=== PATIENT | female | born 1995 ===

== ENCOUNTER 2017-09-03 19:07 | Emergency (ER) | payer OTHER ==
--- NOTE | 2017-09-03 20:36 | ED PDOC ---
HPI: Back Time Seen by Provider: 09/03/17 20:15 Chief Complaint (Nursing): Back Pain Chief Complaint (Provider): low back pain History/Exam Limitations: no limitations Onset/Duration Of Symptoms: Days (2 weeks), Waxing/Waning Current Symptoms Are (Timing): Still Present Exacerbating Factor(s): Turning, Movement Additional Complaint(s): 22 y/o female presents for evaluation of low back pain x 2 weeks. Patient states pain worse with positional change, most notably when bending forward. Patient also notes bright red blood in stool as of 3 days ago. Denies fever, nausea/vomiting, chest pain, abdominal pain, urinary symptoms, recent travel, sick contacts. Past Medical History Reviewed: Historical Data, Nursing Documentation, Vital Signs Vital Signs: Last Vital Signs Temp 99.7 F H 09/03/17 19:24 Pulse 87 09/03/17 19:24 Resp 16 09/03/17 19:24 BP 116/82 09/03/17 19:24 Pulse Ox 100 09/03/17 19:24 - Medical History PMH: No Chronic Diseases - Surgical History Surgical History: No Surg Hx - Family History Family History: States: No Known Family Hx - Living Arrangements Living Arrangements: With Family - Immunization History Hx Tetanus Toxoid Vaccination: No Hx Influenza Vaccination: No Hx Pneumococcal Vaccination: No - Home Medications Home Medications: Ambulatory Orders Medication Instructions Recorded Cyclobenzaprine [Cyclobenzaprine 10 mg PO BID PRN #14 tab 09/03/17 HCl] Ibuprofen [Motrin Tab] 1 tab PO Q6 PRN #15 tab 09/03/17 - Allergies Allergies/Adverse Reactions: Allergies Allergy/AdvReac Type Severity Reaction Status Date / Time No Known Allergies Allergy Verified 09/03/17 19:24 Review of Systems ROS Statement: Except As Marked, All Systems Reviewed And Found Negative Gastrointestinal: Positive for: Hematochezia Musculoskeletal: Positive for: Back Pain Physical Exam - Reviewed Nursing Documentation Reviewed: Yes Vital Signs Reviewed: Yes - Physical Exam Appears: Positive for: Well, Non-toxic, No Acute Distress Head Exam: Positive for: ATRAUMATIC, NORMAL INSPECTION, NORMOCEPHALIC Skin: Positive for: Normal Color Eye Exam: Positive for: Normal appearance ENT: Positive for: Normal ENT Inspection Cardiovascular/Chest: Positive for: Regular Rate, Rhythm Respiratory: Positive for: Normal Breath Sounds Gastrointestinal/Abdominal: Positive for: Normal Exam, Bowel Sounds, Soft. Negative for: Tenderness Back: Positive for: Normal Inspection, Decreased ROM (pain lspine with flexion) . Negative for: L CVA Tenderness, R CVA Tenderness, Vertebral Tenderness, Muscle Spasm Rectal: Positive for: Other (exam chaperoned Swathi RN). Negative for: Hemorrhoids Extremity: Positive for: Normal ROM Neurologic/Psych: Positive for: Alert, Oriented - Laboratory Results Result Diagrams: 09/03/17 21:06 09/03/17 21:06 - ECG O2 Sat by Pulse Oximetry: 100 - Progress ED Course And Treament: labs, xray, IV toradol On re-eval, patient states she is feeling better. Patient educated on findings, discharged with rx ibuprofen, flexeril Advised follow up PMD/GI Return precautions given. Disposition - Clinical Impression Clinical Impression: Rectal bleeding, Low back pain - Patient ED Disposition Is Patient to be Admitted: No Counseled Patient/Family Regarding: Studies Performed, Diagnosis, Need For Followup, Rx Given - Disposition Referrals: Willi Cardenas MD [Staff Provider] - Disposition: Routine/Home Disposition Time: 22:49 Condition: IMPROVED Prescriptions: Cyclobenzaprine [Cyclobenzaprine HCl] 10 mg PO BID PRN #14 tab PRN Reason: Muscle Spasm Ibuprofen [Motrin Tab] 1 tab PO Q6 PRN #15 tab PRN Reason: Pain, Moderate (4-7) Instructions: Low Back Pain in Adults, Bloody Stools Forms: [facility] ([place])
[2017-09-03 21:29] LABS: BASO # 0.1 K/uL (0.0-0.2); BASO % 0.7 % (0.0-2.0); EOS # 0.1 K/uL (0.0-0.7); EOS % 1.5 % (0.0-4.0); HEMOGLOBIN 12.3 g/dL (12.0-16.0); LYMPH # 2.7 K/uL (1.0-4.3); MEAN CELL VOLUME 94.7 fl (81.0-99.0); MEAN CORPUSCULAR HEMOGLOBIN 30.7 pg (27.0-31.0); MEAN CORPUSCULAR HGB CONC 32.5 g/dL (33.0-37.0); MEAN PLATELET VOLUME 7.3 fl (7.2-11.7); MONO # 0.7 K/uL (0.0-0.8); MONO % 7.2 % (0.0-10.0); NEUT # 5.5 K/uL (1.8-7.0); NEUT % 60.6 % (50.0-75.0); RBC 4.01 Mil/uL (3.80-5.20); RED CELL DISTRIBUTION WIDTH 12.7 % (11.5-14.5)
[2017-09-03 21:33] LABS: ALB/GLOB RATIO 1.1 (1.0-2.1); ALBUMIN 3.9 g/dL (3.5-5.0); ALT/SGPT 19 U/L (9-52); AST/SGOT 20 U/L (14-36); BLOOD UREA NITROGEN 14 mg/dl (7-17); CALCIUM 8.7 mg/dL (8.4-10.2); GFR AFRICAN-AMERICAN > 60; GFR NON-AFRICAN AMERICAN > 60
[2017-09-03 22:52] VITALS: BP 112/69; PULSE 89; RESP 18; TEMP 98.4
[2017-09-03 22:54] VITALS: O2SAT 100
--- NOTE | 2017-09-04 09:44 | RAD ---
PROCEDURE: Radiographs of the Lumbar Spine. HISTORY: low back pain COMPARISON: No prior. FINDINGS: BONES: Normal alignment. No listhesis. No fracture. DISC SPACES: Unremarkable. OTHER FINDINGS: None. IMPRESSION: Unremarkable radiographs of the lumbar spine.
== END 2017-09-03 23:22 | disposition home or self-care (01) ==
LOC: H.ER 19:07
DX: K62.5 Hemorrhage of anus and rectum (principal); M54.5 Low back pain
CPT/HCPCS: 72100; 80053; 81025; 85025; 96374; 99283; J1885

== ENCOUNTER 2018-07-01 14:57 | Emergency (ER) | payer OTHER ==
[2018-07-01 15:11] VITALS: RESP 16; O2SAT 100
--- NOTE | 2018-07-01 16:21 | ED PDOC ---
HPI: Skin/Bite Injury Time Seen by Provider: 07/01/18 15:49 Chief Complaint (Nursing): Abnormal Skin Integrity Chief Complaint (Provider): Abnormal Skin Integrity History Per: Patient History/Exam Limitations: no limitations Additional Complaint(s): 23 year old female with no significant past medical history presents to the ED with a upper body, lower extremity and inner thigh rash onset X7 days ago. Patient states that she noted her rash X7 days ago after she came back from [place]. Patient states that she did not notice the rash until the Sunday when she returned from the trip. Patient states that it started under right axilla to her breast and then to her back and inner thighs. The rash has just been spreading for the last few days Patient has started taking Clotrimazole with no improvement . Patient reports some irritation with bra around her bust. Patient denies itchiness, pain, nausea, vomiting, being ill with a virus prior to leaving [place], using any new soaps and perfumes and a fever. PMD: None provided Past Medical History Reviewed: Historical Data, Nursing Documentation, Vital Signs Vital Signs: Last Vital Signs Temp 98.8 F 07/01/18 15:10 Pulse 89 07/01/18 15:10 Resp 16 07/01/18 15:10 BP 105/68 07/01/18 15:10 Pulse Ox 100 07/01/18 15:10 KASHMIR Report Viewed: Yes - Medical History PMH: No Chronic Diseases - Surgical History Surgical History: No Surg Hx - Family History Family History: States: No Known Family Hx - Social History Current smoker - smoking cessation education provided: No Alcohol: Social Drugs: Denies - Immunization History Hx Tetanus Toxoid Vaccination: No Hx Influenza Vaccination: No Hx Pneumococcal Vaccination: No - Home Medications Home Medications: Ambulatory Orders Medication Instructions Recorded Cyclobenzaprine [Cyclobenzaprine 10 mg PO BID PRN #14 tab 09/03/17 HCl] Ibuprofen [Motrin Tab] 1 tab PO Q6 PRN #15 tab 09/03/17 predniSONE [predniSONE Tab] 60 mg PO DAILY #15 tab 07/01/18 - Allergies Allergies/Adverse Reactions: Allergies Allergy/AdvReac Type Severity Reaction Status Date / Time No Known Allergies Allergy Verified 09/03/17 19:24 Review of Systems ROS Statement: Except As Marked, All Systems Reviewed And Found Negative Constitutional: Positive for: Other. Negative for: Fever (being ill with virus ) Gastrointestinal: Negative for: Nausea, Vomiting Skin: Positive for: Rash. Negative for: Other (itchiness, pain) Physical Exam - Reviewed Vital Signs Reviewed: Yes - Physical Exam Appears: Positive for: Well Head Exam: Positive for: ATRAUMATIC, NORMOCEPHALIC Skin: Positive for: Rash (to trunk back and inner thighs. Lesions are different sizes. Rough patches, flast with rays. Scattered scaly metal. ) Eye Exam: Positive for: Normal appearance, EOMI, PERRL Cardiovascular/Chest: Positive for: Regular Rate, Rhythm. Negative for: Murmur Respiratory: Positive for: Normal Breath Sounds. Negative for: Respiratory Distress Gastrointestinal/Abdominal: Positive for: Normal Exam, Soft. Negative for: Tenderness Extremity: Positive for: Normal ROM (upper and Lower). Negative for: Pedal Edema, Deformity Neurological/Psych: Positive for: Awake, Alert, Normal Tone. Negative for: Motor/Sensory Deficits - ECG O2 Sat by Pulse Oximetry: 100 (RA) Pulse Ox Interpretation: Normal Medical Decision Making Medical Decision Making: Time: 15:49 Initial Impression: Rash unknown etiology Plan: Case discussed with Dr. Licea, he recommended patient be started on Prednisone for 5 days and be referred to a quality control associate. Plan was discussed with patient, patient understands and agrees with plan. Patient encouraged to follow up with quality control associate for definitive diagnosis. Scribe Attestation: Documented by Rolando Skinner, acting as a scribe Luisa Romeo [facility] Provider Scribe Attestation: All medical record entries made by the Scribe were at my direction and persona lly dictated by me. I have reviewed the chart and agree that the record accurately reflects my personal performance of the history, physical exam, medical decision making, and the department course for this patient. I have also personally directed, reviewed, and agree with the discharge instructions and disposition. Disposition - Clinical Impression Clinical Impression: Rash - Patient ED Disposition Is Patient to be Admitted: No Counseled Patient/Family Regarding: Diagnosis, Need For Followup, Rx Given - Disposition Referrals: Fransisco Yoder [Medical Doctor] - Vargas Maldonado MD [Staff Provider] - Disposition: Routine/Home Disposition Time: 16:22 Condition: GOOD Prescriptions: predniSONE [predniSONE Tab] 60 mg PO DAILY #15 tab Instructions: Skin Rash (DC) Print Language: CITIZEN OF [place] - POA Present On Arrival: None
[2018-07-01 16:30] VITALS: BP 102/75; PULSE 80; TEMP 98.5
== END 2018-07-01 16:26 | disposition home or self-care (01) ==
LOC: H.ER 14:57
DX: R21 Rash and other nonspecific skin eruption (principal)